=== PATIENT | female | born 1935 | race Caucasian/White ===

== ENCOUNTER → 2019-12-15 11:10 | Outpatient (CLI) | payer MEDICARE, BC, SELFPAY ==
--- NOTE | ~2019-12-15 | XR_ITS ---
EXAMINATION: XR knee LT min 4V DATE: 12/15/2019 12:06 INDICATION: Left knee pain. TECHNIQUE: 4 views of left knee were obtained. COMPARISON: Left knee radiographs 04/01/2019 FINDINGS: There is valgus angulation at the knee. No fracture. There is severe tricompartmental osteo arthritis. There is a large knee joint effusion. IMPRESSION: 1. Severe left knee osteoarthritis. 2. Large left knee joint effusion. Reviewed, dictated and finalized at location A.
== END ==
PROVIDERS: Visit Provider Nurse Practitioner Adult Health
DX: M17.12 Unilateral primary osteoarthritis, left knee (principal); M25.462 Effusion, left knee
CPT/HCPCS: 73564